=== PATIENT | male | born 1955 | race Caucasian/White ===

== ENCOUNTER 2016-07-19 08:30 | Observation (INO) ==
--- NOTE | 2016-07-19 09:18 | EKG Report ---
Stationary ECG Study [facility] ER Test Date: 07/19/2016 8:44:55 AM Pat Name: NORI VIERA Department: Room: EDNMIT Gender: M Chiller Operator: : 1955 Requested by: Zach Valladares Order Number: [id number] Reading MD: AYO ROMAN Intervals [place] Rate: 73 P: 67 CA: 154 QRS: 38 QRSD: 89 T: 53 QT: 389 QTc: 415 Interpretive Statements SINUS RHYTHM POSSIBLE LEFT ATRIAL ENLARGEMENT Electronically Signed On 07-24-16 11:07:59 CDT by AYO ROMAN [email or web address]
[2016-07-19] MEDS ORDERED: ENOXAPARIN 100 MG/ML SYRINGE SUBCUT STA (09:20)
[2016-07-19] MEDS ORDERED: ENOXAPARIN 100 MG/ML SYRINGE SUBCUT ONE (09:27)
[2016-07-19 09:30] LABS: Basophils # 0.1 10*3/uL (0.0-0.2); Basophils % 0.5 % (0.0-0.8); Eosinophils # 0.1 10*3/uL (0.0-0.87); Eosinophils % 0.4 % (0.00-10.9); Hematocrit 47.8 VOL% (42.0-52.0); Hemoglobin 16.6 GM/DL (14.0-18.0); Immature Granulocytes % 0.4 %; Immature Granulocytes Absolute 0.06 #; Lymphocytes # 2.5 10*3/uL (1.4-4.0); Lymphocytes % 18.2 % (21.2-54.2); Mean Corpuscular HGB Conc 34.7 GM/DL (32-36); Mean Corpuscular Hemoglobin 32 PG (27-34); Mean Platelet Volume 10.4 FL (9.6-12.0); Monocytes # 0.6 10*3/uL (0.11-0.8); Monocytes % 4.7 % (1.7-12.7); Neutrophils # 10.2 10*3/uL (1.4-7.4); Neutrophils % 75.8 % (38.7-73.9); Platelet Count 249 T/CUMM (130-400); Red Blood Count 5.14 MC/CUMM (3.8-5.5); White Blood Count 13.5 T/CUMM (4-12)
--- NOTE | 2016-07-19 09:43 | XRay Report ---
XR chest 2V Indication: Chest pain Comparison: None available Findings: The heart and mediastinum are normal in size and configuration. The pulmonary vascularity is normal in caliber. Lung volumes are increased with prominent bronchial markings. No lung infiltrates, effusions, pneumothorax or other abnormality is demonstrated. Impression: Chronic lung changes. No acute process. PROCEDURE INTERPRETED AT [facility] DEPARTMENT OF RADIOLOGY Final Report Signed by: Dr. Macho Case
[2016-07-19 09:47] LABS: Albumin 3.8 G/DL (3.4-5.0); Bilirubin,Total 1.4 MG/DL (0.2-1.0); Calcium 9.6 MG/DL (8.5-10.1); Magnesium 1.6 MG/DL (1.8-2.4); Osmolality,Calculated 276.5 MOS/KG (273-304); Total Protein 7.1 G/DL (6.4-8.3)
[2016-07-19] MEDS ORDERED: NITROGLYCERIN 2% OINT 1 INCH/GM PACK TOP STA (10:12)
[2016-07-19] MEDS ORDERED: MAGNESIUM SULF RIDER 4 GM in PREMIX 1 EACH IV PRN (10:15)
[2016-07-19] MEDS ORDERED: ONDANSETRON 4 MG/2 ML VIAL IV PRN (10:15)
[2016-07-19] MEDS ORDERED: ACETAMINOPHEN 325 MG TABLET PO PRN (10:15)
[2016-07-19] MEDS ORDERED: MAGNESIUM SULF RIDER 2 GM in PREMIX 1 EACH IV PRN ×2 (10:15→16:00)
--- NOTE | 2016-07-19 10:19 | Emergency Department Note ---
Ren Christianson Hilary, am scribing for, and in the presence of, Zach Tinoco MD 09:25. Earnest Christianson Phillip K, MD, personally performed the services described in this documentation, ascribed by Samantha Mcclure in my presence, and it is both accurate and complete . Arrival - Arrival Chief Complaint: Chest Pain Stated Complaint: chest pain sob weakness ED Nursing Triage Note: PT C/O NON RADIATING LEFT SIDED CHEST PAIN THAT COMES AND GOES LASTING LESS THAN A MINUTE, ONSET X 2-3 DAYS. +SOB,DIZZY,AND NAUSEA. Mode of Arrival: Wheelchair Limitations: No Limitations Source: Patient, RN Notes Reviewed Time Seen by Provider: 07/19/16 09:10 - History of Present Illness HPI Narrative: Pt is a 60 y/o male presenting to the ED with c/o of left sided chest pain which is intermittent and onset 2-3 days ago. Pt confirms nausea, dizziness, weakness, SOB, cough but denies vomiting, fever or swelling in his feet. Pt states that at 0500 this morning he was sitting in his recliner when the pain started and got increasingly worse so he came into the ED. His reports that 2 days ago he passed out in a department store. Pt has 2 previous heart stents, has had a heart attack and does smoke. No other complaints or problems stated in the ED. patient has taken an aspirin today. Onset (ago): day(s) Consistency: intermittent, now resolved Allergies/Adverse Reactions: Allergies Allergy/AdvReac Type Severity Reaction Status Date / Time No Known Allergies Allergy Verified 07/19/16 08:40 Home Medications: Home Medications Medication Instructions Recorded Confirmed Type Aspirin EC Tab 81 mg PO QAM 07/19/16 07/19/16 History Esomeprazole Magnesium 40 mg PO QAM 07/19/16 07/19/16 History [Esomeprazole] Lisinopril 10 mg PO QAM 07/19/16 07/19/16 History Magnesium Oxide [Magnesium] 500 mg PO QAM 07/19/16 07/19/16 History Metoprolol Succinate Xl [Toprol Xl] 100 mg PO QAM 07/19/16 07/19/16 History amLODIPine [Norvasc] 10 mg PO QAM 07/19/16 07/19/16 History Review of System - Review of System 12 point system: reviewed and no additional remarkable complaints except as stated - Review of System Constitutional: Absent: diaphoresis, fever Respiratory: Present: cough Cardiovascular: Present: chest pain, dyspnea on exertion Gastrointestinal: Present: nausea. Absent: abdominal pain, vomiting Musculoskeletal: Absent: joint swelling Neurological: Present: weakness Medical,Surgical,& Family Hx - Medical History Cardio: History of: Hypertension, SD Endocrine: History of: Dyslipidemia - Surgical History Cardiac Surgeries: Sugical HX of: Cardiac Catheterization (DISTAL RCA, PROXIMAL RCA) - Social History Smoking Status: Current every day smoker Frequency of Alcohol Use: None Type of Drug Use: None Exam Vital Signs: Vital Signs Temperature 97.4 F L 07/19/16 09:00 Pulse Rate 74 07/19/16 09:00 Respiratory Rate 20 07/19/16 09:00 Blood Pressure 157/116 07/19/16 09:00 O2 Sat by Pulse Oximetry 100 07/19/16 09:00 - General General appearance: alert, in no apparent distress - Head Head exam: Present: atraumatic, normocephalic - Eye Eye exam: Present: normal appearance, PERRL, EOMI - ENT ENT exam: Present: mucous membranes moist, TM's normal bilaterally. Absent: mucous membranes dry - Neck Neck exam: Present: full ROM, trachea midline. Absent: tenderness - Chest Chest inspection: Present: symmetric chest wall rise. Absent: tenderness - Respiratory Respiratory exam: Present: normal lung sounds bilaterally. Absent: respiratory distress - Cardiovascular Cardiovascular exam: Present: regular rate, normal rhythm, normal heart sounds. Absent: murmur, rubs, gallop - Abdominal Exam Abdominal exam: Absent: distention, tenderness - Extremities Exam Extremities exam: Present: full ROM. Absent: tenderness - Back Exam Back exam: Present: full ROM. Absent: tenderness - Neurological Exam Neurological exam: Present: alert, oriented X3, CN II-XII intact. Absent: motor sensory deficit - Psychiatric Psychiatric exam: Present: normal affect, normal mood - Skin Skin exam: Present: warm, dry, intact, normal color. Absent: rash Course Course Narrative: Patient discussed with Dr. Martinez who is the digital color press operator online advertising manager today. Results - Labs CBC & BMP: 07/19/16 08:53 07/19/16 08:53 Lab Results: I have reviewed the patients labs Labs: Laboratory Tests 07/19/16 07/19/16 08:53 08:53 WBC 13.5 H RBC 5.14 Hgb 16.6 Hct 47.8 Neut % (Auto) 75.8 H Lymph % (Auto) 18.2 L Neut # (Auto) 10.2 H Magnesium 1.6 L Total Bilirubin 1.40 H Alkaline Phosphatase 122 H - Diagnostic Findings Procedure: Chest x-ray: report reviewed by me (Chronic lung changes. No acute process) Disposition Clinical Impression: Chest pain, Unstable angina pectoris, Hypertension, Tobacco abuse Case discussed with: patient, patient's family Disposition: Still a Patient Condition: Guarded Additional Instructions: Admit to Dr. Martinez for further evaluation.
[2016-07-19] MEDS ORDERED: NITROGLYCERIN 2% OINT 1 INCH/GM PACK TOP ONE (10:22)
--- NOTE | 2016-07-19 12:29 | EKG Report ---
Stationary ECG Study [facility] ER Test Date: 07/19/2016 12:27:54 PM Pat Name: NORI VIERA Department: Room: EDAKIT Gender: M Security Lead: : 1955 Requested by: Zach Valladares Order Number: [id number] Reading MD: AYO ROMAN Intervals [place] Rate: 66 P: 42 NM: 153 QRS: -24 QRSD: 86 T: 29 QT: 401 QTc: 415 Interpretive Statements SINUS RHYTHM POSSIBLE LEFT ATRIAL ENLARGEMENT Electronically Signed On 07-24-16 11:18:22 CDT by AYO ROMAN [email or web address]
--- NOTE | 2016-07-19 15:09 | EKG Report ---
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
[2016-07-19 15:18] LABS: PT Patient Result 10.7 SECS; Partial Thromboplastin Time 30.7 SECS (0-40)
--- NOTE | 2016-07-19 15:21 | Cardiology History & Physical ---
<Jocelynn Bueno - Last Filed: 07/19/16 16:07> Assessment and Plan - Time spent with patient Time spent with patient: Greater than 30 minutes (1) Chest pain Status: Acute Assessment and plan: Patient confirms intermittent episodes of sharp chest pain that occur with exertion. These last approximately 30 seconds and resolve on their own. Patient has history of known coronary artery disease and underwent left heart catheterization in 2014 at [facility] in [place] with PCI to distal RCA and proximal RCA. Patient is currently not on a statin. I have ordered a lipid panel for baseline. I will initiate low-dose Crestor at this time. I will closely monitor his bilirubin with this and discontinue if needed. Echocardiogram has been ordered. Because the patient has known history of coronary artery disease and has multiple risk factors including uncontrolled hypertension and current everyday smoker it is felt that patient should undergo heart catheterization to definitively rule out progression of patient's underlying coronary artery disease. I have reviewed the risks and benefits of this procedure with the patient and his . They both agree to proceed with this procedure. Keep patient n.p.o. after midnight and plan for left heart cath in the morning per Dr. Tatum. Further plan and addendum to follow per Dr. Martinez. Current Visit: Yes (2) Coronary artery disease Status: Chronic Current Visit: Yes (3) Hypertension Status: Chronic Assessment and plan: This is currently uncontrolled. I have resumed patient's home medications and have increased his VIJAY inhibitor. I will further adjust his medications as needed in order to achieve blood pressure control. Current Visit: Yes (4) Tobacco abuse Status: Acute Assessment and plan: Counseled patient on the importance of smoking cessation. Current Visit: Yes (5) Elevated bilirubin Status: Acute Assessment and plan: Patient bilirubin is mildly elevated at 1.4. Liver enzymes are stable. Will continue to monitor these and consult GI if needed. Current Visit: Yes (6) Leukocytosis Status: Acute Assessment and plan: Patient is afebrile. Chest x-ray does not reveal any acute process. I will order blood cultures and urine culture at this time. We will continue to monitor this. Current Visit: Yes History of Present Illness Chief complaint: Hypertension and chest pain History of present illness: Licensed Staff Mft: None PCP: Dr. Leon Matute in [place], [place] Mr. Pérez is a 60 year old male with known history of coronary artery disease , not routinely followed by a local cardiology. Patient presented to the ER today and plans of uncontrolled hypertension and intermittent episodes of chest pain. He has cardiac risk factors significant for hypertension, known history of coronary artery disease and current every day smoker (smokes 1 pack per day) . Denies any significant family history of heart disease. Patient is a past medical history of myocardial infarction January 29, 2015 and underwent left heart catheterization at [facility] in [place] with stent placement to distal RCA and proximal RCA (he stopped Plavix approximately 3 months ago). He tells me that he has not followed up with cardiology since that time. Patient presented to the ER this morning with complaints of uncontrollable hypertension and intermittent episodes of sharp chest pain. He tells me that he has been routinely checking his blood pressure at home. Over the past several weeks, his diastolic blood pressure has been over 100. Today, when he checked his blood pressure it was noted to be 219/127. He also reports that this morning he had an episode of sharp chest pain that lasted approximately 30 seconds. His is at the bedside, and she reports that she saw him holding his chest. Of note, patient reports that he frequently has these episodes while exerting himself. He describes them as a nonradiating sharp pain located to the left side of his chest, lasting approximately 30 seconds and resolves on its own. Associated with shortness of breath. He denies fever, chills, cough, nausea, vomiting, abdominal pain, melena, orthopnea, PND and lower extremity swelling. He tells me that his presentation is quite different than it was in 2014 when he required stent to his RCA. He did not feel well today was worried about his uncontrolled blood pressure. After discussing with his , they thought that it was best for him to come to the ER to get evaluated. He has been admitted under cardiology's service and housed on the telemetry floor. Approximately 1 week ago, he tells me that he had a near syncopal episode while at the [employer] store. He became extremely weak and dizzy with blurred vision. He tells me that he never actually passed out. However, he did have to sit down for a while. His had to come get him from the store. Once they got home, he told me that his diastolic blood pressure was well over 100. He is unable to recall the exact numbers. Of note, patient also confirms easy fatigability and worsening dyspnea on exertion. Over the past 2 weeks, he has had a noticeable reduction in his exercise tolerance. He tells me that he has does not feel like doing anything. His tells me that he is extremely short of breath just after walking short distances has to take multiple rest breaks. Patient was seen and examined on telemetry. He is currently chest pain-free. Troponin has been negative 1. EKG does not reveal any acute findings. No previous EKG for comparison. We will continue to cycle cardiac biomarkers and EKG. And echocardiogram has been ordered. On exam, patient's chest pain is not reproducible. I have requested patient's hospital records from [place]. Pressure has been uncontrolled since being admitted. Patient's home medications have been restarted. VIJAY inhibitor has been increased. Will further adjust as needed to achieve blood pressure control. Magnesium is noted to be 1.6. Magnesium replacement protocol has been ordered. Total bilirubin is slightly elevated. We will recheck this in the morning. White blood cell count is slightly elevated at 13.5 with a left shift noted. Patient is afebrile and denies any fevers at home. Chest x-ray does not reveal any acute processes. She is currently normal sinus rhythm without any overt arrhythmias or ectopy noted. We will continue to monitor patient on telemetry. We will keep patient n.p.o. and further discuss with Dr. Martinez. Further plan and addendum to follow per Dr. Martinez. Home Medications Medication Instructions Recorded Confirmed Type Aspirin EC Tab 81 mg PO QAM 07/19/16 07/19/16 History Esomeprazole Magnesium 40 mg PO QAM 07/19/16 07/19/16 History [Esomeprazole] Lisinopril 10 mg PO QAM 07/19/16 07/19/16 History Magnesium Oxide [Magnesium] 500 mg PO QAM 07/19/16 07/19/16 History Metoprolol Succinate Xl [Toprol Xl] 100 mg PO QAM 07/19/16 07/19/16 History amLODIPine [Norvasc] 10 mg PO QAM 07/19/16 07/19/16 History Allergies Allergy/AdvReac Type Severity Reaction Status Date / Time No Known Allergies Allergy Verified 07/19/16 08:40 - Constitutional Constitutional: Present: fatigue, malaise, weakness. Absent: chills, fever(s), frequent falls, weight gain, weight loss - EENT Eyes: Present: blurry vision Nose, mouth and throat: Absent: headache(s), hoarseness, nasal congestion, sinus pressure, sore throat - Cardiovascular Cardiovascular: Present: as per HPI, chest pain with activity, dyspnea, dyspnea on exertion, lightheadedness. Absent: claudication, diaphoresis, edema, radiating jaw, neck or arm pain, orthopnea, palpitations, PND - Respiratory Respiratory: Present: dyspnea, dyspnea on exertion. Absent: cough, hemoptysis, pain on inspiration - Gastrointestinal Gastrointestinal: Absent: abdominal pain, coffee ground emesis, constipation, cramping, diarrhea, heartburn, hematemesis, hematochezia, loose stools, melena, nausea, vomiting - Genitourinary Genitourinary: Absent: dysuria - Neurological Neurological: Present: dizziness. Absent: abnormal gait, abnormal speech, behavioral changes, frequent falls, syncope - Psychiatric Psychiatric: Absent: anxiety, depression - Hematologic/Lymphatic Hematologic/Lymphatic: Absent: easy bleeding, easy bruising, lymphadenopathy Medical,Surgical,& Family Hx - Medical History Cardio: History of: Hypertension, MD - Surgical History Cardiac Surgeries: Sugical HX of: Cardiac Catheterization (DISTAL RCA, PROXIMAL RCA) - Family History Family History: Reports;: Family Hypertension - Social History Smoking Status: Current every day smoker Frequency of Alcohol Use: None Type of Drug Use: None Cardiology Physical Exam - Constitutional Vitals: Vital Signs Temp Pulse Resp BP Pulse Ox 98.1 F 66 18 178/94 94 L 07/19/16 14:10 07/19/16 14:10 07/19/16 14:10 07/19/16 14:10 07/19/16 14:10 Intake and Output 07/18/16 07/19/16 07/19/16 22:59 06:59 14:59 Other: Weight 200 lb Patient Weight 07/20/16 06:59 Weight 200 lb General appearance: normal weight, no acute distress - Head Head exam: Present: normal inspection, normocephalic, atraumatic - Neck Neck exam: Present: normal inspection - Respiratory Respiratory exam: Present: clear to auscultation bilaterally. Absent: accessory muscle use, chest wall tenderness, rales, rhonchi - Cardiovascular Cardiovascular exam: Present: regular rate and rhythm. Absent: carotid bruit, gallop, rubs, systolic murmur - GI/Abdominal GI/Abdominal exam: Present: normal bowel sounds, soft. Absent: distended, firm , tenderness - Extremities Exam Extremities exam: Present: normal inspection, normal capillary refill, other ( Peripheral pulses 2+). Absent: calf tenderness, edema - Back Exam Back exam: Present: normal inspection - Neurological Exam Neurological exam: Present: alert, oriented X3, normal gait - Psychiatric Psychiatric exam: Present: normal affect, normal mood. Absent: agitated, anxious - Skin Skin exam: Present: normal color, warm, dry. Absent: cyanosis Result/EKG - Labs CBC & BMP: 07/19/16 08:53 07/19/16 08:53 Lab Results: I have reviewed the past 24 hour labs - Diagnostic Findings Procedure: Chest x-ray: report reviewed by me <Magdaleno Martinez - Last Filed: 07/19/16 18:04> History of Present Illness History of present illness: Patient personally reviewed and examined and chart reviewed. Discussed his case with Jocelynn Bueno NP. Agree with the history examination and assessment Mr. Pérez is a 60 year old male known coronary disease having apparently stents in RCA. He has not had follow-up. He. He [place] out of state. He presented with elevated blood pressure stasis pressure behind the last several weeks. Also he is been having dyspnea on exertion and some nonspecific chest discomfort. His blood pressures are have improved since admission. We will increase him his blood pressure medications. We'll titrate his blood pressure medication. He will cart catheterization tomorrow discussed this procedure with the patient reviewing indications the procedure would be carried out. I discussed cardiac catheterization and percutaneous coronary intervention with the patient and available family. I reviewed with them the indications for the procedure and the basis of how the procedure would be carried out. I also reviewed with them the risk of the procedure which include but not necessarily limited to access site bleeding, bruising, pain, swelling or vascular injury that may require emergency vascular surgery, blood transfusion, or thrombin injection. Also discussed the possibility of stroke, myocardial infarction, arrhythmia which may require electrocardioversion, and the possibility of dye reaction that would require medical therapy. Also discussed the possibility of coronary artery injury, ruptured, closure or perforation that may require emergency bypass surgery. We also discussed the possibility of from a major complication. They voice understanding and agree to proceed. Dr. Johnson and we'll plan on carrying this out tomorrow. Cardiology Physical Exam - Constitutional Vitals: Vital Signs Temp Pulse Resp BP Pulse Ox 99.2 F 68 18 138/90 93 L 07/19/16 15:58 07/19/16 15:58 07/19/16 15:58 07/19/16 15:58 07/19/16 15:58 Intake and Output 07/19/16 07/19/16 07/19/16 07:59 15:59 23:59 Other: Weight 90.718 kg Patient Weight 07/19/16 23:59 Weight 90.718 kg Result/EKG - Labs CBC & BMP: 07/19/16 08:53 07/19/16 08:53 Labs: Laboratory Results - last 24 hr 07/19/16 07/19/16 07/19/16 14:20 14:56 14:56 INR 1.0 PT Patient/Control Mix 10.7 Circ Anticoag PTT 30.7 Total Creatine Kinase 152 CK-MB (CK-2) 1.6 Troponin I < 0.015 < 0.015 07/19/16 16:51 INR 1.0 PT Patient/Control Mix 10.7 Circ Anticoag PTT 30.8 Total Creatine Kinase CK-MB (CK-2) Troponin I
[2016-07-19 15:44] LABS: Troponin I Only < 0.015 NG/ML (0.00-0.045)
[2016-07-19 15:50] LABS: Risk Ratio 4.11; VLDL CHOLESTEROL 22.2 MG/DL
[2016-07-19] MEDS ORDERED: POTASSIUM CHLORIDE RIDER 10 MEQ in PREMIX 1 EACH IV PRN ×2 (15:50→16:00)
[2016-07-19] MEDS ORDERED: DIAZEPAM 5 MG TABLET PO ONE (15:50)
[2016-07-19] MEDS ORDERED: diphenhydrAMINE CAP 25 MG CAPSULE PO ONE (15:50)
[2016-07-19 17:25] LABS: PT Patient Result 10.7 SECS; Partial Thromboplastin Time 30.8 SECS (0-40)
[2016-07-19] MEDS: NITROGLYCERIN 2% OINT 1 INCH/GM PACK TOP SCH (19:18)
[2016-07-19] MEDS: SODIUM CHLORIDE 0.9% 1,000 ML IV SCH (19:19)
--- NOTE | 2016-07-19 20:16 | ECHO Report ---
Edmund Pérez 07/19/2016 Exam Date: 15:30 Referring Physician: Alyssa Diggs Technologist: CARMEN Age: 60 Ht (in): 76 Wt (lb): 200 MExam Location: [facility] Gender: Echo [id number]: Chest pain, unspecified, Shortness Indications:of breath, Weakness, Dizziness and giddiness, Nausea, Cough, CAD with previous stents, Nicotine dependence, cigarettes, uncomplicated BP: 178 / 94 HR: 77 SinusRhythm: GoodTechnical Quality: IMPRESSIONS 1. Left ventricle is normal size systolic function ejection fraction 60%. There may be a mid anterior wall area of hypokinesis that could be consistent ischemic heart disease. 2. Other cardiac chambers are normal size. 3. Valvular structures overall are normal. MEASUREMENTS (Male / Female) Normal Values 2D ECHO LV Diastolic Diameter PLAX 5.2 cm 4.2 - 5.9 / 3.9 - 5.3 cm LV Systolic Diameter PLAX 2.5 cm LV Fractional Shortening PLAX 51.6 % IVS Diastolic Thickness 0.9 cm 0.6 - 1.0 / 0.6 - 0.9 cm LVPW Diastolic Thickness 0.9 cm 0.6 - 1.0 / 0.6 - 0.9 cm RV Internal Dim ED PLAX 3.6 cm Aortic Root Diameter 3.8 cm LA Systolic Diameter LX 4.2 cm 3.0 - 4.0 / 2.7 - 3.8 cm DOPPLER TR Peak Velocity 251.0 cm/s TR Peak Gradient 25.2 mmHg FINDINGS Left Ventricle Normal left ventricular cavity size. Normal left ventricular wall thickness. Left ventricular ejection fraction is estimated at 60 %. There appears to possibly a mid anterior wall area of hypokinesis. Right Ventricle The right ventricle is normal in size and function. Right Atrium The right atrium is normal in size. Left Atrium The left atrium is normal in size. Mitral Valve Morphologically normal mitral valve without significant stenosis or prolapse. There is no mitral regurgitation. Aortic Valve Morphologically normal aortic valve is tricuspid without significant sclerosis or stenosis. There is no aortic regurgitation. Tricuspid Valve Morphologically normal tricuspid valve. Trace tricuspid valve regurgitation. Tricuspid regurgitation velocities suggest a PAP of 35 mmHg. Pulmonic Valve Morphologically normal pulmonic valve without significant stenosis. There is no pulmonic regurgitation. Pericardium Normal pericardium without effusion. Aorta Normal ascending aorta dimension. Magdaleno Martinez MD (Electronically Signed) 19 July 2016 Final Date: 20:16
[2016-07-19 20:29] LABS: Troponin I Only < 0.015 NG/ML (0.00-0.045)
[2016-07-19] MEDS ORDERED: ROSUVASTATIN 10 MG TABLET PO SCH (21:00)
[2016-07-19 21:23] LABS: Apearance,Urine CLEAR (Clear); Bilirubin,Urine Negative (Negative); Blood, Urine Negative (Negative); Glucose,Urine (UA) Negative (Negative); Ketones,Urine Negative (Negative); Mucus,Urine Occasional /LPF (Occasional); Nitrite,Urine Negative (Negative); Protein,Urine Negative; RBC,Urine 2 /HPF (0-4); Urine Color Yellow (Yellow); Urine Specific Gravity 1.012 (1.001-1.035); Urine Urobilinogen < 2.0 EU/DL (0.2-1.0); WBC,Urine 1 /HPF (0-6)
[2016-07-20] MEDS: NITROGLYCERIN 2% OINT 1 INCH/GM PACK TOP SCH ×2 (00:01→05:12)
[2016-07-20 04:06] LABS: Basophils # 0.1 10*3/uL (0.0-0.2); Basophils % 0.8 % (0.0-0.8); Eosinophils # 0.1 10*3/uL (0.0-0.87); Hematocrit 44.2 VOL% (42.0-52.0); Hemoglobin 15.5 GM/DL (14.0-18.0); Immature Granulocytes % 0.3 %; Immature Granulocytes Absolute 0.03 #; Lymphocytes # 2.7 10*3/uL (1.4-4.0); Lymphocytes % 31.7 % (21.2-54.2); Mean Corpuscular HGB Conc 35.1 GM/DL (32-36); Mean Corpuscular Hemoglobin 32 PG (27-34); Mean Corpuscular Volume 89.8 FL (87-102); Mean Platelet Volume 10.5 FL (9.6-12.0); Monocytes # 0.5 10*3/uL (0.11-0.8); Monocytes % 5.5 % (1.7-12.7); Neutrophils # 5.2 10*3/uL (1.4-7.4); Neutrophils % 60.7 % (38.7-73.9); Platelet Count 251 T/CUMM (130-400); Red Blood Count 4.92 MC/CUMM (3.8-5.5); White Blood Count 8.6 T/CUMM (4-12)
[2016-07-20 04:37] LABS: Calcium 9.3 MG/DL (8.5-10.1); Magnesium 1.5 MG/DL (1.8-2.4); Osmolality,Calculated 280.3 MOS/KG (273-304); Potassium 3.9 MMOL/L (3.5-5.1)
[2016-07-20 04:39] LABS: Albumin 3.4 G/DL (3.4-5.0); Bilirubin,Direct 0.1 MG/DL (0.0-0.20); Bilirubin,Indirect 0.7 MG/DL (0.0-1.0); Bilirubin,Total 0.8 MG/DL (0.2-1.0); Total Protein 6.2 G/DL (6.4-8.3)
[2016-07-20] MEDS: SODIUM CHLORIDE 0.9% 1,000 ML IV SCH (05:13)
[2016-07-20] MEDS ORDERED: diphenhydrAMINE CAP 25 MG CAPSULE PO ONE (07:00)
[2016-07-20] MEDS ORDERED: DIAZEPAM 5 MG TABLET PO ONE (07:00)
--- NOTE | 2016-07-20 07:16 | EKG Report ---
Stationary ECG Study [facility] Test Date: 07/20/2016 7:15:42 AM Pat Name: NORI VIERA Department: Room: 274 Gender: M Rental Agent: KRYSTIAN : 1955 Requested by: Jocelynn Bueno Order Number: [id number] Reading MD: AYO ROMAN Intervals [place] Rate: 71 P: 46 [place]: 144 QRS: 56 QRSD: 88 T: -1 QT: 389 QTc: 411 Interpretive Statements SINUS RHYTHM PROBABLE INFERIOR MYOCARDIAL INFARCTION, PROBABLY OLD Electronically Signed On 07-24-16 11:38:53 CDT by AYO ROMAN [id number]
[2016-07-20] MEDS ORDERED: amLODIPine 10 MG TABLET PO ONE (07:23)
[2016-07-20] MEDS ORDERED: ASPIRIN EC 81 MG TABLET PO ONE (07:23)
[2016-07-20] MEDS ORDERED: LISINOPRIL 20 MG TABLET PO ONE (07:24)
[2016-07-20] MEDS ORDERED: METOPROLOL SUCCINATE XL 100 MG TABLET PO ONE (07:24)
--- NOTE | 2016-07-20 08:05 | Event Note ---
Mr. Shaffer is a 60-year-old smoker with history of previous RI and right coronary stents. He is to have recurrent chest pain, increased dyspnea on exertion, hypertensive episodes, and is over 3 years of worsening and significant limiting bilateral lower extreme claudication. We will plan for heart catheterization today from right groin access, with lower extremity runoff to evaluate for PAD. I discussed with the patient arrest and benefits of heart catheterization including but not limited to: , stroke, heart attack, vascular damage, reaction to medicine or dye, bleeding requiring blood transfusion, failure the procedure, possible need for planned her emergency heart surgery. I have answered all the patient's questions and the patient is agreeable to proceed.
[2016-07-20] MEDS ORDERED: MIDAZOLAM 2 MG/2 ML VIAL ONE (08:47)
[2016-07-20] MEDS ORDERED: LIDOCAINE 1% 20 ML VIAL ONE (08:47)
[2016-07-20] MEDS ORDERED: HYDROmorphone 2 MG/1 ML VIAL ONE (08:47)
[2016-07-20] MEDS ORDERED: LISINOPRIL 20 MG TABLET PO SCH (09:00)
[2016-07-20] MEDS ORDERED: amLODIPine 10 MG TABLET PO SCH (09:00)
[2016-07-20] MEDS ORDERED: NON-FORMULARY MEDICATION (Magnesium Oxide [Magnesium] 500 MG) PO SCH (09:00)
[2016-07-20] MEDS ORDERED: METOPROLOL SUCCINATE XL 100 MG TABLET PO SCH (09:00)
[2016-07-20] MEDS ORDERED: ASPIRIN EC 81 MG TABLET PO SCH (09:00)
[2016-07-20] MEDS ORDERED: ZALEPLON 5 MG CAPSULE PO PRN (09:54)
[2016-07-20] MEDS ORDERED: HYDROmorphone 2 MG/1 ML VIAL IV PRN (09:54)
[2016-07-20] MEDS ORDERED: NITROGLYCERIN SL 0.4 MG TABLET SL PRN (09:54)
--- NOTE | 2016-07-20 10:14 | Cardiac Catheterization ---
Date of Procedure:: 07/20/16 Post-op diagnosis: same Procedure: Procedures performed: 1. Left heart catheterization 2. Coronary angiography 3. Left ventriculography 4. Abdominal aortogram with lower extremity runoff 5. Selective right common iliac angiography 6. Right femoral arteriotomy closures with minx device Brief clinical summary: Mr. Bejarano is a 60-year-old smoker with history of RCA stenting several years ago with episodes of chest pain and dyspnea. He also notes having over 3 years of bilateral limiting largely claudication. Description of procedure: After obtaining informed consent, the right groin was prepped and draped in the usual sterile fashion. Next a short 6 Irish sheath was placed in the right femoral artery using a modified Seldinger technique, after the patient received IV sedation and local anesthetic. Next a JL4 catheter was advanced over a guidewire under fluoroscopic guidance, and was engaged to the left coronary artery after which angiography was performed in multiple views. This was then removed over a wire, and a JR4 catheter was advanced in similar fashion was engaged the right coronary artery after which angiography was performed in multiple views. Next a bent pigtail catheter was advanced into the left ventricle, where hemodynamic measurements were obtained, left ventriculography was performed. The pigtail catheter was then pulled back to the abdominal aorta were abdominal aortogram was performed with runoff. I was unable to evaluate the vasculature below the popliteal segment on the right , and so I performed a angiographic the sheath which showed the catheter was inserted at the bifurcation of the right common femoral artery. However I was unable to visualize the intermediate right common iliac disease. Therefore I advanced a JR4 catheter into the distal right common iliac segment of performed DSA angiogram. Hemostasis was obtained with a minx device with no residual bleeding. 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 Coronary angiography: Left main coronary normal developed 3 disease. Left hand his ER is of average caliber but taper significant distally and does not quite reach the apex. There is 30-40% mid LAD stenosis at the bifurcation of a large than average diagonal branch with a high bifurcation. The circumflex gives off 2 study large than average obtuse marginal branches and a tiny OM 3 branch. There are moderate irregularities with no discrete lesions. The right coronary artery dominant vessel is at least average in caliber. It gives off a somewhat large than average PDA and PL 1 branch, as well as a thin PO2 branch. There are moderate irregularities right coronary with a discrete lesions in the right coronary. Left ventriculogram: Left ventricle is normal size with normal ejection fraction is 85% without segmental wall motion abnormality. There is not appear to be significant mitral regurgitation. Abdominal aortogram: The abdominal aorta is normally developed with moderate irregularities. The common iliacs both have mild disease of less than 30% with moderate calcification extending throughout the iliac segments. Both internal iliacs are patent. There is mild disease in the left external iliac with intermediate stenosis on the right external iliac approximate 60%. The left SFA has 80-90% in the midportion and then shortly thereafter the distal segment there is an occlusion with reconstitution at approximately the proximal popliteal segment. There appears to be patent three-vessel at the trifurcation but was not evaluated below the upper third of the calf. On the right there is a nonsignificant SFA disease of less than 30-40%. There is probably 60%, intermediate right popliteal stenosis, with in-line flow through a large posterior tibial artery to the heel. The anterior tibial and peroneal cannot be evaluated due to bone overlap. Selective right common iliac angiogram: This was performed DSA demonstrated intermedius 60% right external iliac stenosis with only mild 30% common iliac stenosis. Impression: 1. Normal LV systolic function with ejection fraction estimate to be 65% without segmental wall motion abnormality 2. Right dominant system 3. Trivial coronary artery disease as detailed above 4. Widely patent mid and distal right coronary artery stents 5. PAD as detailed above including but not limited to: A. Intermediate, 60% tubular right external iliac stenosis B. Probable intermediate, 60% right popliteal stenosis with in-line flow to the foot through a large posterior tibial artery C. Distal left SFA occlusion with reconstitution of the proximal popliteal segment and three-vessel runoff to at least the upper third of the calf Recommend discussion: Given these findings is clearly Mr. Bejarano's chest pain is likely noncardiac. Normal LV function is encouraging. He is also encouraging that he has widely patent stents from years past. I will add cilostazol to his regimen given his limiting claudication. It is interesting that he reports his symptoms are symmetrical despite clearly having worse disease on the left. Given his LDL was quite high, he may benefit for more intensive statin therapy. Anesthesia: minimal conscious sedation Surgeon / Physician: Herbie Tatum Bankruptcy Assistant: other Estimated blood loss: minimal Specimens: none sent Condition: stable Disposition: floor - Medications / Follow-up
[2016-07-20] MEDS ORDERED: CILOSTAZOL 50 MG TABLET PO SCH (10:30)
[2016-07-20] MEDS ORDERED: ROSUVASTATIN 20 MG TABLET PO SCH (10:30)
[2016-07-20 15:00] VITALS: BP 125/80
--- NOTE | 2016-07-20 15:22 | Discharge Summary ---
<Jocelynn Bueno - Last Filed: 07/20/16 15:13> Hospital Course - Hospital Course Hospital Course: Access Rep: None PCP: Dr. Leon Matute in [place], [place] Mr. Pérez is a 60 year old male with known history of coronary artery disease , not routinely followed by a local cardiology. Patient presented to the ER today and plans of uncontrolled hypertension and intermittent episodes of chest pain. He has cardiac risk factors significant for hypertension, known history of coronary artery disease and current every day smoker (smokes 1 pack per day) . Denies any significant family history of heart disease. Patient is a past medical history of myocardial infarction January 29, 2015 and underwent left heart catheterization at [facility] in [place] with stent placement to distal RCA and proximal RCA (he stopped Plavix approximately 3 months ago). He tells me that he has not followed up with cardiology since that time. Patient presented to [facility] yesterday with complaints concerning for angina. Patient ruled out for myocardial infarction. He underwent left heart catheterization this morning per Dr. Pedroza of the following impressions noted: Impression: 1. Normal LV systolic function with ejection fraction estimate to be 65% without segmental wall motion abnormality 2. Right dominant system 3. Trivial coronary artery disease a) 30-40% mid LAD stenosis at the bifurcation of a large than average diagonal branch with a high bifurcation. 4. Widely patent mid and distal right coronary artery stents 5. PAD as detailed above including but not limited to: A. Intermediate, 60% tubular right external iliac stenosis B. Probable intermediate, 60% right popliteal stenosis with in-line flow to the foot through a large posterior tibial artery C. Distal left SFA occlusion with reconstitution of the proximal popliteal segment and three-vessel runoff to at least the upper third of the calf Recommend discussion: Given these findings is clearly Mr. Bejarano's chest pain is likely noncardiac. Normal LV function is encouraging. It is also encouraging that he has widely patent stents from years past. I will add cilostazol to his regimen given his limiting claudication. It is interesting that he reports his symptoms are symmetrical despite clearly having worse disease on the left. Given his LDL was quite high, he may benefit for more intensive statin therapy. Post heart catheterization patient was transferred back to the telemetry unit in stable condition. He has done well postoperatively and has been without complications. Right groin is soft without bleeding, hematoma and bruit. Distal pulses present. Patient denies chest pain, heaviness and tightness. Patient is ambulated around the room and down the ulrich without difficulty. Right groin has remained stable post ambulation. Magnesium was noted to be low this morning and replaced via IV replacement protocol. Was rechecked prior to discharge and it was noted to be within normal limits. Due to patient's claudication symptoms, he was started on Pletal this admission. He was also started on Crestor 20 mg daily. Right groin precautions have been discussed with the patient. He verbalizes understanding. Vital signs are stable post catheterization. Patient is anxious for discharge home. Having felt that patient has met maximal medical therapy, he will be discharged home in stable condition. Patient had echocardiogram this admission which revealed normal left ventricle size and systolic function with ejection fraction of 60% without any significant valvular abnormalities. Patient will be given a follow-up appointment with Dr. Tatum in 1-2 weeks with CBC, mag and EKG. Patient and patient's both verbalized understanding of discharge instructions and discharge medications. - Time spent with patient Time with patient DS: Greater than 30 minutes Diagnosis - Discharge Diagnosis (1) Chest pain Status: Resolved (2) Coronary artery disease Status: Chronic (3) Hypertension Status: Chronic (4) Tobacco abuse Status: Chronic Specialty Discharge - Follow Up or Referrals Follow up with: Herbie Tatum MD [Physician] - 08/03/16 8:40 am (Please make patient follow point with Dr. Tatum in 1-2 weeks with BMP, magnesium and EKG.) Discharge Plan - Discharge Data Disposition: Disch To Home/Self Care Condition at Discharge: Stable Discharge Diet: heart healthy Activity: no lifting (Avoid heavy lifting and squatting 1 week.), other (Post cath expectations) Hygiene: other (Post cath expectations) Weight Bearing at Discharge: other (Post cath expectations) Driving: other (Post catheterization) Contact your physician if you experience:: fever over 101, Difficulty voiding, Redness or swelling, Nausea/Vomiting, Shortness of breath, Bleeding, pain uncontrolled by pain medications - Discharge Medications New Cilostazol [Pletal] 50 mg PO BID #60 tablet Rosuvastatin [Crestor] 20 mg PO DAILY #30 tablet Continue Aspirin EC Tab 81 mg PO QAM amLODIPine [Norvasc] 10 mg PO QAM Lisinopril 10 mg PO QAM Metoprolol Succinate Xl [Toprol Xl] 100 mg PO QAM Magnesium Oxide [Magnesium] 500 mg PO QAM Esomeprazole Magnesium [Esomeprazole] 40 mg PO QAM - Follow Up or Referral Follow Up: Herbie Tatum MD [Physician] - 08/03/16 8:40 am (Please make patient follow point with Dr. Tatum in 1-2 weeks with BMP, magnesium and EKG.) - Forms/Instructions Instructions: Left Heart Catheterization (DC) Exam - Constitutional Vitals: Period Temp Pulse Resp BP Sys/Mederos Pulse Ox Last 24 Hr 98.0 F-99.7 F 16-84 16-69 123-148/73-96 91-97 General appearance: normal weight, no acute distress - Head Head exam: Present: normal inspection, normocephalic, atraumatic - Neck Neck exam: Present: normal inspection. Absent: lymphadenopathy, tenderness, thyromegaly - Respiratory Respiratory exam: Present: clear to auscultation bilaterally. Absent: accessory muscle use, chest wall tenderness, rales, rhonchi, stridor, wheezes - Cardiovascular Cardiovascular exam: Present: regular rate and rhythm. Absent: gallop, rubs, systolic murmur - GI/Abdominal GI/Abdominal exam: Present: normal bowel sounds, soft. Absent: distended, firm , mass, tenderness - Extremities Exam Extremities exam: Present: normal inspection, normal capillary refill, other ( Right groin is soft without bleeding, hematoma and bruit. Distal pulses present.). Absent: calf tenderness, edema - Neurological Exam Neurological exam: Present: alert, oriented X3, normal gait - Psychiatric Psychiatric exam: Present: normal affect, normal mood. Absent: agitated, anxious - Skin Skin exam: Present: normal color, warm, dry. Absent: cyanosis Discharge Results Procedures and tests throughout hospitalization: Pending Orders 07/19/16 Urine Culture Routine 07/19/16 16:51 Blood Culture Routine 07/20/16 08:34 CL heart Routine Labs on day of discharge: Labs from last 24 hours 07/20/16 07/20/16 07/20/16 15:17 03:23 03:23 WBC RBC Hgb Hct MCV MCH MCHC RDW Plt Count MPV Neut % (Auto) Lymph % (Auto) [place] % (Auto) Eos % (Auto) Baso % (Auto) Neut # (Auto) Lymph # (Auto) [place] # (Auto) Eos # (Auto) Baso # (Auto) Immature Gran % Nucleated RBC % Immature Gran # Nucleated RBCs # Sodium 141 Potassium 3.9 Chloride 104 Carbon Dioxide 26 Anion Gap 14.9 BUN 12 Creatinine 0.90 GFR Calculation 119 BUN/Creatinine Ratio 13.00 Glucose 102 Calculated Osmolality 280.3 Calcium 9.3 Magnesium 2.4 1.5 L Total Bilirubin 0.80 Direct Bilirubin 0.10 Indirect Bilirubin 0.7 AST 15 ALT 20 Alkaline Phosphatase 105 Total Creatine Kinase CK-MB (CK-2) Troponin I Total Protein 6.2 L Albumin 3.4 Urine Color Urine Appearance Urine pH Ur Specific [place] Urine Protein Urine Glucose (UA) Urine Ketones Urine Blood Urine Nitrate Urine Bilirubin Urine Urobilinogen Urine Leukocytes Urine RBC Urine WBC Urine Mucus Ur Culture Indicated? 07/20/16 07/19/16 07/19/16 03:23 20:52 19:32 WBC 8.6 D RBC 4.92 Hgb 15.5 Hct 44.2 MCV 89.8 MCH 32 MCHC 35.1 RDW 13.0 Plt Count 251 MPV 10.5 Neut % (Auto) 60.7 Lymph % (Auto) 31.7 [place] % (Auto) 5.5 Eos % (Auto) 1.0 Baso % (Auto) 0.8 Neut # (Auto) 5.2 Lymph # (Auto) 2.7 [place] # (Auto) 0.5 Eos # (Auto) 0.1 Baso # (Auto) 0.1 Immature Gran % 0.3 Nucleated RBC % 0.0 Immature Gran # 0.03 Nucleated RBCs # 0.00 Sodium Potassium Chloride Carbon Dioxide Anion Gap BUN Creatinine GFR Calculation BUN/Creatinine Ratio Glucose Calculated Osmolality Calcium Magnesium Total Bilirubin Direct Bilirubin Indirect Bilirubin AST ALT Alkaline Phosphatase Total Creatine Kinase 140 CK-MB (CK-2) 1.6 Troponin I < 0.015 Total Protein Albumin Urine Color Yellow Urine Appearance Clear Urine pH 6.0 Ur Specific [place] 1.012 Urine Protein Negative Urine Glucose (UA) Negative Urine Ketones Negative Urine Blood Negative Urine Nitrate Negative Urine Bilirubin Negative Urine Urobilinogen < 2.0 H Urine Leukocytes Negative Urine RBC 2 Urine WBC 1 Urine Mucus Occasional Ur Culture Indicated? Not indicated Preliminary micro results at discharge 07/19/16 16:51 Blood Culture - Preliminary Blood No growth at 1 day 07/19/16 16:51 Blood Culture - Preliminary Blood No growth at 1 day - Imaging and Cardiology Cardiology Procedure: report reviewed by me Procedure: Chest x-ray: report reviewed by me, Ultrasound: report reviewed by me DS: Provider Date of admission: 07/19/16 10:14 Primary care physician: . [place] PCP Attending physician on admission: Jade Tsang Discharging clinician: Jocelynn Bueno NP Expected date of discharge: 07/20/16 <Magdaleno Martinez - Last Filed: 07/20/16 18:04> Hospital Course - Hospital Course Hospital Course: Patient personally examined and interviewed and chart reviewed. Patient car catheterization without significant coronary disease. He will be discharged to follow Dr. Johnson in one to 2 weeks as well as follow with a primary care physician. He voices understanding his plans.
== END 2016-07-20 16:30 | disposition home or self-care (01) ==
LOC: N.EDINP 08:30 → N.ED 08:30 → N.EDINP 13:51 → N.TELES 14:02
PROVIDERS: ADMIT Internal Medicine Cardiovascular Disease; ATTEND Internal Medicine Cardiovascular Disease
PROC: CLCCHCL (ICD-10-PCS; 2016-07-20 08:45)